=== PATIENT | male | born 1970 | race Two or more races ===

== ENCOUNTER 2017-02-15 16:44 | Emergency (ER) | payer OTHER ==
[~2017-02-15] VITALS: Ht 175.3 cm; Wt 95.3 kg
[2017-02-15 19:45] VITALS: BP 102/60
[2017-02-15] MEDS ORDERED: SUMAtriptan SUCCINATE 6 MG/0.5 ML VL SC ONE (19:45)
[2017-02-15] MEDS ORDERED: KETOROLAC TROMETH 60MG/2ML VIAL IM ONE (19:45)
== END 2017-02-15 20:40 | disposition home or self-care (01) ==
LOC: ER 16:58
DX: R51 Headache (principal); I48.91 Unspecified atrial fibrillation
CPT/HCPCS: 70450; 93005; 96372; 99284; J1885; J3030